=== PATIENT | male | born 1985 | race Caucasian/White ===

== ENCOUNTER 2021-03-31 13:02 | Emergency (ER) | payer SELFPAY ==
[~2021-03-31] VITALS: Ht 175.3 cm; Wt 73.0 kg
[2021-03-31 14:32] VITALS: BP 128/74
[2021-03-31 14:47] LABS: BASOPHILS % 0.2 % (0.0-2.0); EOSINOPHILS % 0.2 % (0.0-5.0); HEMATOCRIT. 46.8 % (42.0-52.0); HEMOGLOBIN. 16.7 g/dL (14.0-18.0); LYMPHOCYTES % 9.3 % (20.0-50.0); MEAN CORPUSCULAR HEMOGLOBIN 31.3 pg (28.0-32.0); MEAN CORPUSCULAR VOLUME 87.7 fL (80.0-94.0); MEAN PLATELET VOLUME 8.7 fl (7.4-10.4); MONOCYTES % 5.5 % (2.0-8.0); NEUTROPHILS % 84.8 % (40.0-76.0); PLATELET 230 x1000/uL (130-400); RED BLOOD CELL COUNT 5.34 mill/uL (4.7-6.1); RED CELL DISTRIBUTION WIDTH 13.3 % (11.6-14.6)
[2021-03-31 14:57] LABS: CHLORIDE 107 mEq/L (98-107)
[2021-03-31 15:00] LABS: ETHANOL BLOOD < 10 mg/dL
== END 2021-03-31 15:53 | disposition home or self-care (01) ==
LOC: ER 13:06
DX: G40.909 Epilepsy, unspecified, not intractable, without status epilepticus (principal)
CPT/HCPCS: 36415; 80053; 80185; 80320; 82962; 85025; 99283; G0480